=== PATIENT | male | born 1960 | race Caucasian/White ===

== ENCOUNTER 2024-03-16 04:12 | Emergency (ER) | payer OTHER ==
[2024-03-16] MEDS: Sodium Chloride 0.9% 1,000 ML IV ONE (05:00)
[2024-03-16] MEDS: Ondansetron 4 MG/2 ML SDV IVPUSH ONE (05:01)
[2024-03-16] MEDS: Ondansetron 4 MG/2 ML SDV ONE (05:18)
[2024-03-16] MEDS ORDERED: Iopamidol 612 MG/ML 100 ML Bottle IV PRN (05:22)
[2024-03-16 05:29] LABS: APPEARANCE,URINE CLEAR (CLEAR); BILIRUBIN,URINE NEGATIVE (NEGATIVE); COLOR,URINE YELLOW; GLUCOSE,URINE NEGATIVE (NEGATIVE); KETONES,URINE TRACE mg/dL (NEGATIVE); LEUKOCYTE ESTERASE,URINE NEGATIVE (NEGATIVE); NITRITE,URINE NEGATIVE (NEGATIVE); OCCULT BLOOD,URINE MODERATE (NEGATIVE); PH,URINE 5.5 (5.0-8.0); PROTEIN,URINE NEGATIVE (NEGATIVE); UROBILINOGEN,URINE 0.2 E.U./dL (0.2-1.0)
[2024-03-16 05:30] LABS: BASOPHILS ABSOLUTE AUTO 0.02 K/uL (0.02-0.10); BASOPHILS PERCENT AUTO 0.3 % (0.0-0.5); EOSINOPHILS ABSOLUTE AUTO 0.17 K/uL (0.04-0.40); EOSINOPHILS PERCENT AUTO 2.2 % (1.0-5.0); HEMATOCRIT 39.7 % (40.0-54.0); HEMOGLOBIN 13.4 g/dL (13.0-18.0); LYMPHOCYTES ABSOLUTE AUTO 1.08 K/uL (1.50-4.00); LYMPHOCYTES PERCENT AUTO 13.7 % (20.0-40.0); MEAN CORPUSCULAR HEMOGLOBIN 30.3 pg (27.0-32.0); MEAN CORPUSCULAR HGB CONC 33.8 g/dL (31.0-35.0); MEAN CORPUSCULAR VOLUME 90 fL (76-96); MEAN PLATELET VOLUME 10.6 fL (6.0-10.0); MONOCYTES PERCENT AUTO 11.4 % (3.0-10.0); NEUTROPHILS ABSOLUTE AUTO 5.73 K/uL (2.00-7.50); NEUTROPHILS PERCENT AUTO 72.4 % (45.0-70.0); PLATELET COUNT,PLT 164 K/uL (150-400); RED BLOOD CELL COUNT 4.42 M/uL (4.50-6.50); RED CELL DISTRIBUTION WIDTH 13.4 % (11.0-16.0); WHITE BLOOD CELL COUNT,WBC 7.9 K/uL (4.0-11.0)
[2024-03-16] MEDS ORDERED: Sodium Chloride 0.9% 50 ML SDV FLUSH SCH (05:30)
[2024-03-16 05:34] LABS: RBC,URINE 0-5 /HPF; WBC,URINE NOT SEEN /HPF
[2024-03-16 05:35] LABS: A/G RATIO 1.1 (0.8-2.0); ALBUMIN 3.6 g/dL (3.4-5.0); ANION GAP 11.6 mmol/L (5.0-15.0); BILIRUBIN TOTAL 0.6 mg/dL (0.0-1.0); BUN/CREATININE RATIO 14.9 (6-25); CALCIUM 8.2 mg/dL (8.5-10.1); CARBON DIOXIDE,CO2 28.2 mmol/L (21.0-32.0); CREATININE 1.68 mg/dL (0.70-1.30); EST CRCL DRUG DOSING (CG) 51.69 mL/min; POTASSIUM,K 3.8 mmol/L (3.5-5.1)
[2024-03-16] MEDS ORDERED: Ketorolac 30 MG/ML SDV ONE (08:51)
[2024-03-16] MEDS: Ketorolac 30 MG/ML SDV IVPUSH ONE (08:54)
== END 2024-03-16 09:02 | disposition home or self-care (01) ==
LOC: LB.ED 04:12
DX: N13.2 Hydronephrosis with renal and ureteral calculous obstruction (principal)
CPT/HCPCS: 36415; 74176; 80053; 81001; 85025; 96361; 96374; 96375; 99284; J1885; J2405; J7030